=== PATIENT | male | born 1955 | race Two or more races ===

== ENCOUNTER 2021-02-11 21:21 | Emergency (ER) | payer SELFPAY ==
[~2021-02-11] VITALS: Ht 167.6 cm; Wt 59.1 kg
[2021-02-11 22:00] VITALS: BP 137/73
[2021-02-11] MEDS ORDERED: DICYCLOMINE HCL 10 MG/ML 2 ML AMP IM ONE (22:30)
[2021-02-11] MEDS ORDERED: ONDANSETRON HCL 4 MG TABLET PO ONE (22:30)
[2021-02-11 22:49] LABS: BASOPHILS % (AUTO) 0.7 % (0.0-2.0); EOSINOPHILS % (AUTO) 0.4 % (1.0-6.0); HEMATOCRIT 37.6 % (41-53); HEMOGLOBIN 12.8 g/dL (13.5-17.5); LYMPHOCYTES # (AUTO) 0.8 K/uL (1.0-4.8); LYMPHOCYTES % (AUTO) 6.4 % (22.0-44.0); MEAN CORPUSCULAR VOLUME 91 fL (80-100); MONOCYTES # (AUTO) 0.6 K/uL (0.1-1.0); NEUTROPHILS # (AUTO) 11.2 K/uL (1.8-7.7); PLATELET COUNT (AUTO) 212 K/uL (150-450); RED BLOOD CELL COUNT(AUTO) 4.11 MIL/uL (4.50-5.90); RED CELL DISTRIBUTION WIDTH 14.2 % (11.5-14.5)
[2021-02-11 22:50] LABS: NEUTROPHILS % (AUTO) 87.5 % (40.0-70.0)
[2021-02-11 23:05] LABS: CREATININE 1.26 mg/dL (0.60-1.30); POTASSIUM 4.1 mmol/L (3.5-5.1)
[2021-02-11 23:11] LABS: ALBUMIN 3.7 g/dL (3.4-5.0); BILIRUBIN,TOTAL 0.2 mg/dL (0.1-1.0); TOTAL PROTEIN, SERUM 7.1 g/dL (6.4-8.2)
== END 2021-02-11 23:35 | disposition left against medical advice (07) ==
LOC: EMS 21:26
DX: R10.32 Left lower quadrant pain (principal); R11.0 Nausea
CPT/HCPCS: 36415; 80053; 83690; 85025; 96372; 99283; J0500; Q0162